=== PATIENT | female | born 1940 | race American Indian/Alaskan Native ===

== ENCOUNTER 2022-06-22 11:28 | Inpatient (IN) | payer MEDICARE ==
--- NOTE | 2022-06-22 11:42 | Emergency Department Report ---
ED General Adult HPI - General Chief complaint: Altered Mental Status Stated complaint: UTI/LETHRAGIC Time Seen by Provider: 06/22/22 11:40 Source: EMS Mode of arrival: Ambulatory Limitations: No Limitations - History of Present Illness Severity scale (0 -10): 3 - Related Data Allergies Allergy/AdvReac Type Severity Reaction Status Date / Time No Known Allergies Allergy Verified 06/22/22 11:41 ED Review of Systems ROS: Stated complaint: UTI/LETHRAGIC Other details as noted in HPI ED Physical Exam - General Limitations: No Limitations ED Course Vital Signs 06/22/22 11:30 Temperature 99.7 F H Pulse Rate 86 Respiratory 18 Rate Blood Pressure 180/92 [Left] O2 Sat by Pulse 99 Oximetry Critical care attestation.: If time is entered above; I have spent that time in minutes in the direct care of this critically ill patient, excluding procedure time. ED Disposition Condition: Stable
--- NOTE | 2022-06-22 12:08 | Event Note ---
Date: 06/22/22 Verbal report received from emergency medical services. EMS documentation not available at time of chart dictation Medical screening examination note: Patient is an 82-year-old female with a history of end-stage renal disease on hemodialysis, brought to the hospital by EMS with an EMS articulated complaint of weakness, malaise, fatigue, as per EMS "I think she has a urinary tract infection." EMS reports that they were informed by family that the patient has been altered for the past 2 days. The patient herself is awake, breathing spo ntaneously, moving 4 extremities, and has a low-grade temperature. Her abdomen is soft and benign. Place patient on vehicle monitor technician, obtain appropriate laboratory studies, EKG, urinalysis, rectal temperature, x-ray the chest, noncontrast CT scan of the brain. Detailed history and physical to be performed by oncoming provider Vital Signs 06/22/22 11:30 Temperature 99.7 F H Pulse Rate 86 Respiratory 18 Rate Blood Pressure 180/92 [Left] O2 Sat by Pulse 99 Oximetry
[2022-06-22 13:59] LABS: Albumin 3.8 g/dL (3.9-5); Calcium 9.8 mg/dL (8.4-10.2)
[2022-06-22 14:46] LABS: INR 1.03 (0.87-1.13)
[2022-06-22 14:47] LABS: Partial Thromboplastin Time 34.9 Sec. (24.2-36.6)
[2022-06-22 14:51] LABS: Hemoglobin 12.5 gm/dl (10.1-14.3); Red Blood Count 4.86 M/mm3 (3.65-5.03)
[2022-06-22 14:52] LABS: Basophils % (Auto) 2.7 % (0.0-1.8); Eosinophils % (Auto) 2.4 % (0.0-4.3); Lymphocytes % (Auto) 16.8 % (13.4-35.0); Mean Corpuscular HGB Conc 31 % (30-34); Mean Corpuscular Volume 84 fl (79-97); Monocytes % (Auto) 10.2 % (0.0-7.3); Platelet Count 295 K/mm3 (140-440); Red Cell Distribution Width 20.4 % (13.2-15.2)
--- NOTE | 2022-06-22 14:52 | XRay Report ---
CHEST 1 VIEW 06/22/2022 1:39 PM INDICATION / CLINICAL INFORMATION: Altered Mental Status. COMPARISON: None available. FINDINGS: SUPPORT DEVICES: Right IJ CVL tip projects over the superior cavoatrial junction. HEART / MEDIASTINUM: No significant abnormality. LUNGS / PLEURA: Diffuse bilateral interstitial prominence which appears to be chronic. No pneumothora x. ADDITIONAL FINDINGS: No significant additional findings. Signer Name: Timbo Hanley MD Signed: 06/22/2022 2:47 PM Workstation Name: [email or web address]
[2022-06-22 14:53] LABS: Basophils # (Auto) 0.2 K/mm3 (0.0-0.1); Eosinophils # (Auto) 0.2 K/mm3 (0.0-0.4); Lymphocytes # (Auto) 1.2 K/mm3 (1.2-5.4); Monocytes # (Auto) 0.8 K/mm3 (0.0-0.8)
--- NOTE | 2022-06-22 14:58 | Cat Scan Report ---
CT head/brain wo con INDICATION / CLINICAL INFORMATION: 82 years Female; Altered Mental Status. TECHNIQUE: Routine CT head without contrast. All CT scans at this location are performed using CT dos e reduction for ALARA by means of automated exposure control. Significant motion artifact. COMPARISON: None. FINDINGS: BRAIN / INTRACRANIAL CONTENTS: No acute hemorrhage, mass effect, midline shift, hydrocephalus, or acu te, large territorial infarct. Mild to moderate, diffuse cerebral and cerebellar atrophy. Moderate degree of hippocampal atrophy sug gested bilaterally. There are moderate areas of decreased attenuation in the white matter of the cerebral hemispheres. Th nhan are nonspecific findings and may be related to microangiopathy (hypertension, diabetes, atheroscl erosis), given the patient's age. It might be difficult to evaluate for small areas of ischemia witho ut diffusion imaging by MRI. CRANIOCERVICAL JUNCTION: No significant abnormality. ORBITS: No significant abnormality of visualized orbits. SINUSES / MASTOIDS: Visualized paranasal sinuses and mastoid air cells are essentially clear. ADDITIONAL FINDINGS: Bilateral temporomandibular joint disease noted. Atherosclerotic disease is seen in the anterior and posterior circulation. IMPRESSION: 1. No focal mass, hemorrhage, hydrocephalus, or acute, large territorial infarct appreciated on this limited study. Signer Name: Daniel Catherine MD, III Signed: 06/22/2022 2:53 PM Workstation Name: [email or web address]
--- NOTE | 2022-06-22 15:23 | Emergency Department Report ---
ED General Adult HPI - General Chief complaint: Altered Mental Status Stated complaint: UTI/LETHRAGIC PUI?: No Time Seen by Provider: 06/22/22 11:40 Source: EMS Mode of arrival: Ambulatory Limitations: No Limitations, Altered Mental Status - History of Present Illness Initial comments: 82yo F w/hx of ESRD on h/d bibems for altered mental status. EMS personnel is not present at this time. Per RN Gisselle, she has been unsuccessful in obtaining direct contact (via telephone) with the pt's family members to obtain further information concerning HPI. Pt unable to contribute further information secondary to her current mental status. Please note that at the start of this provider's shift time, the pt had been in the ER for several hours and underwent a medical screening examination by Dr. Joseph Johns. Pt's labs and diagnostic imaging were ordered by him and had resulted prior to the start of this provider's shift time. Severity scale (0 -10): 3 - Related Data Allergies Allergy/AdvReac Type Severity Reaction Status Date / Time No Known Allergies Allergy Verified 06/22/22 11:41 ED Review of Systems ROS: Stated complaint: UTI/LETHRAGIC Other details as noted in HPI Comment: Unobtainable due to pts medical conditions ED Past Medical Hx - Past Medical History Previous Medical History?: Yes Hx Renal Disease: Yes (on hemodialysis ) - Social History Smoking Status: Unknown if ever smoked ED Physical Exam - General Limitations: No Limitations, Altered Mental Status General appearance: lethargic, other (pt observed to have twitching movements; not responding to verbal stimuli ) - Head Head exam: Present: atraumatic, normocephalic, normal inspection - Eye Eye exam: Present: normal appearance, PERRL, EOMI. Absent: scleral icterus, conjunctival injection, nystagmus, periorbital swelling, periorbital tenderness, other Pupils: Present: normal accommodation. Absent: irregular, unequal, miosis, mydriatic - ENT ENT exam: Present: normal exam, mucous membranes dry - Neck Neck exam: Present: normal inspection, full ROM. Absent: tenderness, meningismus, lymphadenopathy, thyromegaly - Respiratory Respiratory exam: Present: normal lung sounds bilaterally, respiratory distress. Absent: wheezes, rales, rhonchi, stridor, chest wall tenderness, accessory muscle use, decreased breath sounds, prolonged expiratory - Cardiovascular Cardiovascular Exam: Present: regular rate, normal rhythm, normal heart sounds. Absent: bradycardia, tachycardia, systolic murmur, diastolic murmur, rubs, irizarry p, clicks, JVD, S3 - GI/Abdominal GI/Abdominal exam: Present: soft, diminished bowel sounds. Absent: distended, tenderness, guarding, rebound, rigid, normal bowel sounds, hyperactive bowel sounds, hypoactive bowel sounds, organomegaly, mass, bruit, pulsatile mass, hernia, other - External exam: Present: lacerations, ecchymosis, bleeding - Extremities Exam Extremities exam: Present: normal inspection, full ROM, normal capillary refill. Absent: tenderness, pedal edema, joint swelling, calf tenderness - Neurological Exam Neurological exam: Present: altered, reflexes normal (altered mental status ), other (pt nonverbal ) - Skin Skin exam: Present: warm, dry, intact, normal color. Absent: rash, cyanosis, diaphoretic, erythema, urticaria, vesicles, petechiae, pallor, abrasion, ecchymosis ED Course Vital Signs 06/22/22 06/22/22 06/22/22 11:30 15:01 16:00 Temperature 99.7 F H Pulse Rate 86 Pulse Rate [ Anterior Bilateral Throughout] Respiratory 18 Rate Respiratory Rate [Anterior Bilateral Throughout] Blood Pressure Blood Pressure 180/92 [Left] O2 Sat by Pulse 99 97 96 Oximetry O2 Sat by Pulse Oximetry [ Anterior Bilateral Throughout] 06/22/22 06/22/22 06/22/22 16:55 18:40 19:45 Temperature 97.8 F Pulse Rate 90 76 Pulse Rate [ 90 Anterior Bilateral Throughout] Respiratory 26 H Rate Respiratory 18 Rate [Anterior Bilateral Throughout] Blood Pressure 212/115 210/92 Blood Pressure [Left] O2 Sat by Pulse Oximetry O2 Sat by Pulse 100 Oximetry [ Anterior Bilateral Throughout] 06/22/22 06/22/22 06/22/22 19:50 19:59 20:00 Temperature Pulse Rate 68 72 Pulse Rate [ Anterior Bilateral Throughout] Respiratory 20 Rate Respiratory Rate [Anterior Bilateral Throughout] Blood Pressure 204/97 212/98 Blood Pressure [Left] O2 Sat by Pulse 98 Oximetry O2 Sat by Pulse Oximetry [ Anterior Bilateral Throughout] 06/22/22 06/22/22 06/22/22 20:15 20:30 20:45 Temperature Pulse Rate 67 68 88 Pulse Rate [ Anterior Bilateral Throughout] Respiratory Rate Respiratory Rate [Anterior Bilateral Throughout] Blood Pressure 196/101 175/95 199/90 Blood Pressure [Left] O2 Sat by Pulse Oximetry O2 Sat by Pulse Oximetry [ Anterior Bilateral Throughout] 06/22/22 06/22/22 06/22/22 21:00 21:15 21:30 Temperature Pulse Rate 79 82 81 Pulse Rate [ Anterior Bilateral Throughout] Respiratory Rate Respiratory Rate [Anterior Bilateral Throughout] Blood Pressure 187/98 199/97 206/89 Blood Pressure [Left] O2 Sat by Pulse Oximetry O2 Sat by Pulse Oximetry [ Anterior Bilateral Throughout] 06/22/22 06/22/22 06/22/22 21:45 22:00 22:15 Temperature Pulse Rate 79 82 98 H Pulse Rate [ Anterior Bilateral Throughout] Respiratory Rate Respiratory Rate [Anterior Bilateral Throughout] Blood Pressure 179/92 198/97 186/89 Blood Pressure [Left] O2 Sat by Pulse Oximetry O2 Sat by Pulse Oximetry [ Anterior Bilateral Throughout] 06/22/22 06/22/22 22:30 22:56 Temperature 98.0 F 98.0 F Pulse Rate 92 H 70 Pulse Rate [ Anterior Bilateral Throughout] Respiratory 20 22 Rate Respiratory Rate [Anterior Bilateral Throughout] Blood Pressure 192/88 Blood Pressure 136/90 [Left] O2 Sat by Pulse 100 Oximetry O2 Sat by Pulse 100 Oximetry [ Anterior Bilateral Throughout] - Reevaluation(s) Reevaluation #2: 06/22/22 16:30 call made to lab ; no answer - Consultations Consultation #1: 06/22/22 17:[address] Angeles, information systems operator rental coordinator. He will place the pt in for stat orders for hemodialysis. ED Medical Decision Making - Lab Data Result diagrams: 06/22/22 13:05 06/22/22 15:21 - EKG Data -: EKG Interpreted by Me EKG shows normal: sinus rhythm Rate: normal - EKG Data When compared to previous EKG there are: no significant change Interpretation: no acute changes 06/22/22 17:54 EKG interpreted by me: - Medical Decision Making 82-year-old female brought in by EMS at the request of her family secondary to altered mental status. Patient hypertensive here. Medical screening examination note reviewed as well as labs ordered by previously examining physician. Repeat potassium obtained to verify whether or not the patient has true hyperkalemia in the setting of having missed multiple dialysis sessions. Repeat potassium is 8.6 and was not hemolyzed. Patient was treated emergently with multiple medications as documented in her electronic health care record to reduce hyperkalemia. Case was discussed with Dr. Perez, who stated he will place the patient in for emergent orders to undergo hemodialysis. Case reviewed with Dr. Noel. He has accepted the patient for admission to the hospital service. Of note the patient's son's name is Konrad Bell and he can be reached at [phone] Critical Care Time: Yes Critical care time in (mins) excluding proc time.: 30 Critical care attestation.: If time is entered above; I have spent that time in minutes in the direct care of this critically ill patient, excluding procedure time. ED Disposition Clinical Impression: Hyperkalemia Disposition: ADMITTED INPATIENT Is pt being admited?: Yes Does the pt Need Aspirin: No Condition: Stable
[2022-06-22 16:22] LABS: Chol/HDL Ratio 2.65 %
[2022-06-22] MEDS ORDERED: CALCIUM GLUCONATE 1,000 MG in SODIUM CHLORIDE 0.9% 100 ML IV ONE (16:32)
[2022-06-22] MEDS ORDERED: INSULIN REGULAR, HUMAN 100 UNITS/1 ML IV ONE (16:32)
[2022-06-22] MEDS ORDERED: IPRATROPIUM/ALBUTEROL SULFATE 3 ML AMPUL.NEB IH ONE (16:32)
[2022-06-22] MEDS ORDERED: DEXTROSE 50% IN WATER (25GM) 50 ML SYRINGE IV ONE (16:32)
--- NOTE | 2022-06-22 17:35 | Event Note ---
Date: 06/22/22 Case discussed with ED physician. Orders placed for STAT dialysis.
[2022-06-22] MEDS ORDERED: ALBUTEROL 2.5 MG/3 ML NEBU IH ONE (17:45)
[2022-06-22] MEDS ORDERED: HYDROmorphone 0.5 MG/0.5 ML INJ IV PRN (17:53)
[2022-06-22] MEDS ORDERED: ONDANSETRON 4 MG/2 ML INJ IV PRN (17:53)
[2022-06-22] MEDS ORDERED: ALBUTEROL 2.5 MG/3 ML NEBU IH PRN (17:53)
[2022-06-22] MEDS ORDERED: ACETAMINOPHEN 325 MG TAB PO PRN (17:53)
[2022-06-22] MEDS ORDERED: oxyCODONE /ACETAMINOPHEN 5-325MG TAB PO PRN (17:53)
--- NOTE | 2022-06-22 17:53 | History and Physical Report ---
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 Patient is confused and lethargic with diminished cognition at the time of evaluation and is unable to provide history. Patient described by EMS staff, ED staff, as well as the patient's son was made available by telephone for interview. As per son the patient has experienced increased confusion and weakness over the past several weeks and is unable been unable to undergo dialysis. EMS was notified and upon arrival the patient was found to be in distress and subsequent transported to [facility] for further care and evaluation of the aforementioned symptoms. The patient was seen and evaluated emergency department. All lab and imaging studies reviewed. Patient found to have end-stage renal disease, hyperkalemia, fluid overload, metabolic encephalopathy, accelerated hypertension. Patient admitted to medical floor due to increased risk of worsening symptoms and for medical stabilization. Nephrology team consulted in ED. Patient has diminished cognition at time of evaluation but has a positive gag reflex and respiratory without difficulty. Patient family informed of patient overall poor prognosis and request aggressive therapy. Patient admitted to telemetry for medical stabilization due to increased risk of worsening symptoms. No reports of fever, chills, chest pain, palpitation or productive cough, skin rash or recent contact, no exposure to COVID-19. No prior admission for review. No medication listed at time of admission for reconciliation. Medical plan conducted in ED. Past History Past Medical History: ESRD Past Surgical History: Other (Dialysis access) Social history: single. denies: smoking, alcohol abuse, prescription drug abuse Family history: diabetes, hypertension Medications and Allergies Allergies Allergy/AdvReac Type Severity Reaction Status Date / Time No Known Allergies Allergy Verified 06/22/22 11:41 Review of Systems ROS unobtainable: due to mental status Exam - Constitutional Vitals: Temp Pulse Resp BP Pulse Ox 99.7 F H 90 18 212/115 97 06/22/22 11:30 06/22/22 16:55 06/22/22 11:30 06/22/22 16:55 06/22/22 15:01 General appearance: Present: mild distress - EENT Eyes: Present: PERRL ENT: hearing intact, clear oral mucosa, hearing decreased - Neck Neck: Present: supple, normal ROM - Respiratory Respiratory effort: labored Respiratory: bilateral: diminished, rhonchi - Cardiovascular Heart Sounds: Present: S1 & S2. Absent: rub, click - Extremities Extremities: pulses symmetrical, No edema Peripheral Pulses: within normal limits - Abdominal General gastrointestinal: Present: soft, non-tender, non-distended, normal bowel sounds Female genitourinary: Present: normal - Integumentary Integumentary: Present: clear, dry, clammy - Musculoskeletal Musculoskeletal: generalized weakness - Psychiatric Psychiatric: no intact judgment & insight, no memory intact - Neurologic Neurologic: CNII-XII intact, no focal deficits, moves all extremities, no gait normal HEART Score - HEART Score Troponin: Troponin T 0.057 ng/mL (0.00-0.029) H 06/22/22 13:05 Results - Labs CBC & Chem 7: 06/22/22 13:05 06/22/22 15:21 Labs: Abnormal lab results 06/22/22 06/22/22 06/22/22 Range/Units 13:05 13:05 13:05 MCH 26 L (28-32) pg RDW 20.4 H (13.2-15.2) % [place] % (Auto) 10.2 H (0.0-7.3) % Baso % (Auto) 2.7 H (0.0-1.8) % Baso # (Auto) 0.2 H (0.0-0.1) K/mm3 Potassium 8.1 H* (3.6-5.0) mmol/L BUN 119 H (7-17) mg/dL Creatinine 14.7 H (0.6-1.2) mg/dL Lactic Acid 0.50 L (0.7-2.0) mmol/L ALT 6 L (7-56) units/L Alkaline Phosphatase 23 L (35-129) units/L Troponin T (0.00-0.029) ng/mL Albumin 3.8 L (3.9-5) g/dL Salicylates (2.8-20.0) mg/dL Acetaminophen (10.0-30.0) ug/mL 06/22/22 06/22/22 06/22/22 Range/Units 13:05 13:05 13:05 MCH (28-32) pg RDW (13.2-15.2) % [place] % (Auto) (0.0-7.3) % Baso % (Auto) (0.0-1.8) % Baso # (Auto) (0.0-0.1) K/mm3 Potassium (3.6-5.0) mmol/L BUN (7-17) mg/dL Creatinine (0.6-1.2) mg/dL Lactic Acid (0.7-2.0) mmol/L ALT (7-56) units/L Alkaline Phosphatase (35-129) units/L Troponin T 0.057 H (0.00-0.029) ng/mL Albumin (3.9-5) g/dL Salicylates < 0.3 L (2.8-20.0) mg/dL Acetaminophen 5.0 L (10.0-30.0) ug/mL 06/22/22 Range/Units 15:21 MCH (28-32) pg RDW (13.2-15.2) % [place] % (Auto) (0.0-7.3) % Baso % (Auto) (0.0-1.8) % Baso # (Auto) (0.0-0.1) K/mm3 Potassium 8.6 H* (3.6-5.0) mmol/L BUN (7-17) mg/dL Creatinine (0.6-1.2) mg/dL Lactic Acid (0.7-2.0) mmol/L ALT (7-56) units/L Alkaline Phosphatase (35-129) units/L Troponin T (0.00-0.029) ng/mL Albumin (3.9-5) g/dL Salicylates (2.8-20.0) mg/dL Acetaminophen (10.0-30.0) ug/mL Assessment and Plan - Patient Problems (1) Metabolic encephalopathy Current Visit: Yes Status: Acute Plan to address problem: CT head, neuro check, supportive care, urgent dialysis. BMP, monitor fluid balance, supportive care. (2) End stage renal disease Current Visit: Yes Status: Acute Plan to address problem: Urgent dialysis as per renal team, strict I's/O, monitor fluid balance, avoid nephrotoxic agents. (3) Hyperkalemia Current Visit: No Status: Acute Plan to address problem: Kayexalate, calcium gluconate, supportive care, stat dialysis, repeat BMP, no EKG changes at this time. (4) Accelerated hypertension Current Visit: Yes Status: Acute Plan to address problem: Monitor blood pressure every shift, continue medical management, IV hydralazine every 6 hours as needed for systolic blood pressure greater than or equal to 155 mmHg. (5) DVT prophylaxis Current Visit: Yes Status: Acute Plan to address problem: SCD to bilateral lower extremities while in bed (6) Advance care planning Current Visit: Yes Status: Acute Plan to address problem: Disease education data, care plan discussed, diagnoses discussed, prognosis discussed, patient is full code. Patient family knowledges understanding agree with care plan, +30 minutes. (7) Preventative health care Current Visit: Yes Status: Acute Plan to address problem: Patient family counseled regarding prognosis, home safety, outpatient follow-up with all age and risk factor appropriate screening tests as per primary care physician. +30 minutes.
[2022-06-22 18:37] LABS: Hepatitis B Surface Antigen Non-Reactive (Negative); Hepatitis C Virus Antibody Non-Reactive (NonReactive)
[2022-06-23] MEDS ORDERED: DEXTROSE 50% IN WATER (25GM) 50 ML SYRINGE IV ONE (02:23)
[2022-06-23] MEDS: hydrALAZINE 20 MG/1 ML INJ IV PRN ×2 (02:33→16:09)
[2022-06-23] MEDS ORDERED: SODIUM CHLORIDE 0.9% 100 ML IV PRN (10:00)
--- NOTE | 2022-06-23 12:51 | Progress Note ---
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 Patient described by EMS staff, ED staff, as well as the patient's son was made available by telephone for interview. As per son the patient has experienced increased confusion and weakness over the past several weeks and has been unable to undergo dialysis. The patient was seen and evaluated emergency department. All lab and imaging studies reviewed. Patient found to have end-stage renal disease, hyperkalemia, fluid overload, metabolic encephalopathy, accelerated hypertension. Acute metabolic encephalopathy ESRD Hyperkalemia Accelerated hypertension Hospital course: 06/23/2022. On admission, patient was noted to have a potassium of 8.6. The patient underwent stat hemodialysis yesterday with only slight improvement in the potassium to 7.3 today. Patient is to undergo hemodialysis again today. Patient remains confused. We will check ammonia levels. Check MRI brain Hospitalist Physical - Constitutional Vitals: Temp Pulse Resp BP Pulse Ox 97.7 F 82 18 132/73 98 06/23/22 10:00 06/23/22 11:15 06/23/22 10:00 06/23/22 11:15 06/23/22 10:00 General appearance: Present: mild distress HEART Score - HEART Score Troponin: Troponin T 0.057 ng/mL (0.00-0.029) H 06/22/22 13:05 Results - Labs CBC & Chem 7: 06/22/22 13:05 06/23/22 08:09 Labs: Laboratory Last Values WBC 7.4 K/mm3 (4.5-11.0) 06/22/22 13:05 RBC 4.86 M/mm3 (3.65-5.03) 06/22/22 13:05 Hgb 12.5 gm/dl (10.1-14.3) 06/22/22 13:05 Hct 41.0 % (30.3-42.9) 06/22/22 13:05 MCV 84 fl (79-97) 06/22/22 13:05 MCH 26 pg (28-32) L 06/22/22 13:05 MCHC 31 % (30-34) 06/22/22 13:05 RDW 20.4 % (13.2-15.2) H 06/22/22 13:05 Plt Count 295 K/mm3 (140-440) 06/22/22 13:05 Lymph % (Auto) 16.8 % (13.4-35.0) 06/22/22 13:05 [place] % (Auto) 10.2 % (0.0-7.3) H 06/22/22 13:05 Eos % (Auto) 2.4 % (0.0-4.3) 06/22/22 13:05 Baso % (Auto) 2.7 % (0.0-1.8) H 06/22/22 13:05 Lymph # (Auto) 1.2 K/mm3 (1.2-5.4) 06/22/22 13:05 [place] # (Auto) 0.8 K/mm3 (0.0-0.8) 06/22/22 13:05 Eos # (Auto) 0.2 K/mm3 (0.0-0.4) 06/22/22 13:05 Baso # (Auto) 0.2 K/mm3 (0.0-0.1) H 06/22/22 13:05 Add Manual Diff Complete 06/22/22 13:05 Seg Neutrophils % 67.9 % (40.0-70.0) 06/22/22 13:05 Seg Neutrophils # 5.0 K/mm3 (1.8-7.7) 06/22/22 13:05 PT 14.7 Sec. (12.2-14.9) 06/22/22 13:05 INR 1.03 (0.87-1.13) 06/22/22 13:05 APTT 34.9 Sec. (24.2-36.6) 06/22/22 13:05 Sodium 141 mmol/L (137-145) 06/23/22 08:09 Potassium 7.3 mmol/L (3.6-5.0) H* 06/23/22 08:09 Chloride 97.9 mmol/L (98-107) L 06/23/22 08:09 Carbon Dioxide 25 mmol/L (22-30) 06/23/22 08:09 Anion Gap 25 mmol/L 06/23/22 08:09 BUN 76 mg/dL (7-17) H 06/23/22 08:09 Creatinine 11.4 mg/dL (0.6-1.2) H 06/23/22 08:09 Estimated GFR 4 ml/min 06/23/22 08:09 BUN/Creatinine Ratio 7 % 06/23/22 08:09 Glucose 86 mg/dL (65-100) 06/23/22 08:09 POC Glucose 98 mg/dL (70-105) 06/23/22 05:05 Lactic Acid 0.50 mmol/L (0.7-2.0) L 06/22/22 13:05 Calcium 10.0 mg/dL (8.4-10.2) 06/23/22 08:09 Total Bilirubin 0.20 mg/dL (0.1-1.2) 06/22/22 13:05 AST 8 units/L (5-40) 06/22/22 13:05 ALT 6 units/L (7-56) L 06/22/22 13:05 Alkaline Phosphatase 23 units/L (35-129) L 06/22/22 13:05 Ammonia 28.0 umol/L (25-60) 06/22/22 13:05 Total Creatine Kinase 51 units/L (30-135) 06/22/22 13:05 Troponin T 0.057 ng/mL (0.00-0.029) H 06/22/22 13:05 Total Protein 7.4 g/dL (6.3-8.2) 06/22/22 13:05 Albumin 3.8 g/dL (3.9-5) L 06/22/22 13:05 Albumin/Globulin Ratio 1.1 % 06/22/22 13:05 Triglycerides 57 mg/dL (2-149) 06/22/22 13:05 Cholesterol 125 mg/dL (50-199) 06/22/22 13:05 LDL Cholesterol Direct 63 mg/dL (50-130) 06/22/22 13:05 HDL Cholesterol 47 mg/dL (40-59) 06/22/22 13:05 Cholesterol/HDL Ratio 2.65 % 06/22/22 13:05 TSH 4.020 mlU/mL (0.270-4.200) 06/22/22 15:29 Salicylates < 0.3 mg/dL (2.8-20.0) L 06/22/22 13:05 Acetaminophen 5.0 ug/mL (10.0-30.0) L 06/22/22 13:05 Plasma/Serum Alcohol < 0.01 % (0-0.07) 06/22/22 13:05 Hepatitis A IgM Ab Non-reactive (NonReactive) 06/22/22 13:05 Hep Bs Antigen Non-reactive (Negative) 06/22/22 13:05 Hep B Core IgM Ab Non-reactive (NonReactive) 06/22/22 13:05 Hepatitis C Antibody Non-reactive (NonReactive) 06/22/22 13:05 Blood Type B POSITIVE 06/22/22 13:05 Antibody Screen Negative 06/22/22 13:05 Microbiology: Microbiology 06/22/22 13:05 Peripheral/Venous Blood Culture - Preliminary Culture in Progress 06/22/22 13:05 Peripheral/Venous Blood Culture - Preliminary Culture in Progress Active Medications - Current Medications Current Medications: Generic Name Dose Route Start Last Admin Trade Name Freq PRN Reason Stop Dose Admin Acetaminophen 650 mg 06/22/22 17:53 Acetaminophen 325 Mg Tab PO Q4H PRN Pain MILD(1-3)/Fever >100.5/CHAN Albuterol 2.5 mg 06/22/22 17:53 Albuterol 2.5 Mg/3 Ml Nebu IH Q4HRT PRN Shortness Of Breath Hydralazine HCl 10 mg 06/23/22 02:16 06/23/22 02:33 Hydralazine 20 Mg/1 Ml Inj IV 10 mg Q4HR PRN Administration Hypertension Hydromorphone HCl 0.5 mg 06/22/22 17:53 Hydromorphone 0.5 Mg/0.5 Ml Inj IV Q23H PRN Pain , Severe (7-10) Sodium Chloride 100 mls @ 999 mls/hr 06/23/22 10:00 Nacl 0.9% IV WALTER PRN Hypotension Ondansetron HCl 4 mg 06/22/22 17:53 Ondansetron 4 Mg/2 Ml Inj IV Q8H PRN Nausea And Vomiting Oxycodone/Acetaminophen 1 tab 06/22/22 17:53 Oxycodone /Acetaminophen 5-325mg Tab PO Q16H PRN Pain, Moderate (4-6) Sodium Chloride 10 ml 06/22/22 22:00 06/23/22 02:34 Sodium Chloride 0.9% 10 Ml Flush Syringe IV 10 ml BID ANGELICA Administration Sodium Chloride 10 ml 06/22/22 17:53 Sodium Chloride 0.9% 10 Ml Flush Syringe IV PRN PRN LINE FLUSH
--- NOTE | 2022-06-23 12:57 | Consultation ---
History of Present Illness - Reason for Consult end stage renal disease, hyperkalemia - History of Present Illness frail 82-year-old -[place] female with underlying history of end-stage renal disease secondary to hypertension along with a history of dementia, who typically dialyzes on a Wednesday//Wednesday hemodialysis schedule at [facility], presented to the emergency department brought in by family secondary to worsening lethargy and weakness. Did discuss case with patient's home dialysis clinic who mentioned to me that she had been missing multiple dialysis treatments. Apparently family had contributed much of her weakness and fatigue to the dialysis treatments and as such had not been bringing her for her scheduled dialysis treatments. It seems that on average she misses at least 2 treatments every week. Patient comes in now very lethargic, weak, fatigued, and really unable to provide any other history herself. History was obtained through review of records and discussion of case with primary team. Nephrology was consulted for urgent dialysis needs. She was urgently dialyzed yesterday and labs repeated this morning also indicate need for a second dialysis treatment which we have ordered at this time. Past History Past Medical History: ESRD, hypertension, hyperlipidemia Past Surgical History: Other (Dialysis access) Social history: single. denies: smoking, alcohol abuse, prescription drug abuse Family history: diabetes, hypertension Medications and Allergies Allergies Allergy/AdvReac Type Severity Reaction Status Date / Time No Known Allergies Allergy Verified 06/22/22 11:41 Active Meds: Active Medications Acetaminophen (Acetaminophen 325 Mg Tab) 650 mg PO Q4H PRN PRN Reason: Pain MILD(1-3)/Fever >100.5/CHAN Albuterol (Albuterol 2.5 Mg/3 Ml Nebu) 2.5 mg IH Q4HRT PRN PRN Reason: Shortness Of Breath Hydralazine HCl (Hydralazine 20 Mg/1 Ml Inj) 10 mg IV Q4HR PRN PRN Reason: Hypertension Last Admin: 06/23/22 02:33 Dose: 10 mg Hydromorphone HCl (Hydromorphone 0.5 Mg/0.5 Ml Inj) 0.5 mg IV Q23H PRN PRN Reason: Pain , Severe (7-10) Sodium Chloride (Nacl 0.9%) 100 mls @ 999 mls/hr IV WALTER PRN PRN Reason: Hypotension Ondansetron HCl (Ondansetron 4 Mg/2 Ml Inj) 4 mg IV Q8H PRN PRN Reason: Nausea And Vomiting Oxycodone/Acetaminophen (Oxycodone /Acetaminophen 5-325mg Tab) 1 tab PO Q16H PRN PRN Reason: Pain, Moderate (4-6) Sodium Chloride (Sodium Chloride 0.9% 10 Ml Flush Syringe) 10 ml IV BID ANGELICA Last Admin: 06/23/22 02:34 Dose: 10 ml Sodium Chloride (Sodium Chloride 0.9% 10 Ml Flush Syringe) 10 ml IV PRN PRN PRN Reason: LINE FLUSH Review of Systems ROS unobtainable: due to mental status Exam - Vital Signs Vital signs: Vital Signs Temp Pulse Resp BP Pulse Ox 99.7 F H 86 18 180/92 99 06/22/22 11:30 06/22/22 11:30 06/22/22 11:30 06/22/22 11:30 06/22/22 11:30 - General Appearance General appearance: cachectic, chronically ill, frail EENT: ATNC Neck: Present: neck supple, trachea midline Respiratory: Decreased Breath Sounds Heart: regular Gastrointestinal: Present: normal Integumentary: no rash Neurologic: disoriented Musculoskeletal: Present: deferred Results - Lab Results 06/22/22 13:05 06/23/22 08:09 Most recent lab results Calcium 10.0 mg/dL (8.4-10.2) 06/23/22 08:09 Assessment and Plan - Patient Problems (1) Hyperkalemia Current Visit: Yes Status: Acute Plan to address problem: we will correct with hemodialysis. Likely a consequence of noncompliance with her dialysis treatments. (2) Accelerated hypertension Current Visit: Yes Status: Acute Plan to address problem: likely as a consequence of noncompliance with hemodialysis treatments. Will try to maximally optimize ultrafiltration during dialysis treatments. Will monitor closely on current regimen. (3) Metabolic encephalopathy Current Visit: Yes Status: Chronic Plan to address problem: there may be an element of worsening altered mentation secondary to poor compliance with dialysis. She does however have a documented history of dementia and I did confirm this with her home dialysis clinic. (4) End stage renal disease Current Visit: Yes Status: Chronic Plan to address problem: we will continue on inpatient Wednesday hemodialysis schedule and will assess daily for extra needs of dialysis and/or sequential ultrafiltration treatment.
--- NOTE | 2022-06-23 13:17 | Electrocardiograph Report ---
[facility] Test Date: 2022-06-22 Test Time: 15:47:22 Pat Name: CAROLINE DONOVAN Department: Room: A478 1 Gender: F Mechanical Facilities Technician: TEJAS : 1940 Requested By: YAKELIN VILLATORO Order Number: [id number] Reading MD: Shae Dominguez Measurements Intervals [place] Rate: 71 P: 65 ND: 201 QRS: -41 QRSD: 101 T: 54 QT: 409 QTc: 444 Interpretive Statements Sinus rhythm Probable left atrial enlargement Left anterior fascicular block Left ventricular hypertrophy No previous ECG available for comparison Electronically Signed On 06-23-2022 13:16:58 EDT by Shae Dominguez
[2022-06-24] MEDS ORDERED: SODIUM POLYSTYRENE 15 GM/60 ML ORAL LIQD PO ONE (01:09)
[2022-06-24 05:28] LABS: Mean Corpuscular HGB Conc 30 % (30-34); Mean Corpuscular Volume 86 fl (79-97); Platelet Count 280 K/mm3 (140-440); Red Blood Count 4.82 M/mm3 (3.65-5.03)
[2022-06-24 05:39] LABS: Hematocrit 41.4 % (30.3-42.9); Hemoglobin 12.3 gm/dl (10.1-14.3); Red Cell Distribution Width 20.2 % (13.2-15.2)
[2022-06-24 05:44] LABS: Calcium 9.8 mg/dL (8.4-10.2)
[2022-06-24 06:32] LABS: Anisocytosis 1+; Eosinophils % (Manual) 0 % (0.0-4.3); Hypochromasia 1+; Platelet Estimate Consistent w Auto; Total Cells Counted 100
[2022-06-24] MEDS ORDERED: SODIUM CHLORIDE 0.9% 100 ML IV PRN (10:00)
--- NOTE | 2022-06-24 12:40 | Progress Note ---
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 Patient described by EMS staff, ED staff, as well as the patient's son was made available by telephone for interview. As per son the patient has experienced increased confusion and weakness over the past several weeks and has been unable to undergo dialysis. The patient was seen and evaluated emergency department. All lab and imaging studies reviewed. Patient found to have end-stage renal disease, hyperkalemia, fluid overload, metabolic encephalopathy, accelerated hypertension. Acute metabolic encephalopathy ESRD Hyperkalemia Accelerated hypertension Hospital course: 06/23/2022. On admission, patient was noted to have a potassium of 8.6. The patient underwent stat hemodialysis yesterday with only slight improvement in the potassium to 7.3 today. Patient is to undergo hemodialysis again today. Patient remains confused. We will check ammonia levels. Check MRI brain 06/24/2022. Ammonia level within normal limits. Await MRI brain. Consider neurology consultation. Patient undergoing hemodialysis currently. We will assess mental status after hemodialysis treatment. I suspect etiology is secondary to metabolic encephalopathy. Hypokalemia should also resolve with hemodialysis. Continue antihypertensive medications. Hospitalist Physical - Constitutional Vitals: Temp Pulse Resp BP Pulse Ox 98.2 F 94 H 20 160/90 98 06/24/22 08:12 06/24/22 08:12 06/24/22 05:17 06/24/22 08:12 06/24/22 10:00 General appearance: Present: mild distress HEART Score - HEART Score Troponin: Troponin T 0.057 ng/mL (0.00-0.029) H 06/22/22 13:05 Results - Labs CBC & Chem 7: 06/24/22 04:39 06/24/22 04:39 Labs: Laboratory Last Values WBC 7.6 K/mm3 (4.5-11.0) 06/24/22 04:39 RBC 4.82 M/mm3 (3.65-5.03) 06/24/22 04:39 Hgb 12.3 gm/dl (10.1-14.3) 06/24/22 04:39 Hct 41.4 % (30.3-42.9) 06/24/22 04:39 MCV 86 fl (79-97) 06/24/22 04:39 MCH 26 pg (28-32) L 06/24/22 04:39 MCHC 30 % (30-34) 06/24/22 04:39 RDW 20.2 % (13.2-15.2) H 06/24/22 04:39 Plt Count 280 K/mm3 (140-440) 06/24/22 04:39 Lymph % (Auto) 16.8 % (13.4-35.0) 06/22/22 13:05 [place] % (Auto) Investment Banking Analyst 06/24/22 04:39 Eos % (Auto) 2.4 % (0.0-4.3) 06/22/22 13:05 Baso % (Auto) 2.7 % (0.0-1.8) H 06/22/22 13:05 Lymph # (Auto) 1.2 K/mm3 (1.2-5.4) 06/22/22 13:05 Dyer # (Auto) 0.8 K/mm3 (0.0-0.8) 06/22/22 13:05 Eos # (Auto) 0.2 K/mm3 (0.0-0.4) 06/22/22 13:05 Baso # (Auto) 0.2 K/mm3 (0.0-0.1) H 06/22/22 13:05 Add Manual Diff Complete 06/24/22 04:39 Total Counted 100 06/24/22 04:39 Seg Neutrophils % 67.9 % (40.0-70.0) 06/22/22 13:05 Seg Neuts % (Manual) 72.0 % (40.0-70.0) H 06/24/22 04:39 Band Neutrophils % 0 % 06/24/22 04:39 Lymphocytes % (Manual) 14.0 % (13.4-35.0) 06/24/22 04:39 Reactive Lymphs % (Man) 0 % 06/24/22 04:39 Monocytes % (Manual) 13.0 % (0.0-7.3) H 06/24/22 04:39 Eosinophils % (Manual) 0 % (0.0-4.3) 06/24/22 04:39 Basophils % (Manual) 1.0 % (0.0-1.8) 06/24/22 04:39 Metamyelocytes % 0 % 06/24/22 04:39 Myelocytes % 0 % 06/24/22 04:39 Promyelocytes % 0 % 06/24/22 04:39 Blast Cells % 0 % 06/24/22 04:39 Nucleated RBC % Not Reportable 06/24/22 04:39 Seg Neutrophils # 5.0 K/mm3 (1.8-7.7) 06/22/22 13:05 Seg Neutrophils # Man 5.5 K/mm3 (1.8-7.7) 06/24/22 04:39 Band Neutrophils # 0.0 K/mm3 06/24/22 04:39 Lymphocytes # (Manual) 1.1 K/mm3 (1.2-5.4) L 06/24/22 04:39 Abs React Lymphs (Man) 0.0 K/mm3 06/24/22 04:39 Monocytes # (Manual) 1.0 K/mm3 (0.0-0.8) H 06/24/22 04:39 Eosinophils # (Manual) 0.0 K/mm3 (0.0-0.4) 06/24/22 04:39 Basophils # (Manual) 0.1 K/mm3 (0.0-0.1) 06/24/22 04:39 Metamyelocytes # 0.0 K/mm3 06/24/22 04:39 Myelocytes # 0.0 K/mm3 06/24/22 04:39 Promyelocytes # 0.0 K/mm3 06/24/22 04:39 Blast Cells # 0.0 K/mm3 06/24/22 04:39 WBC Morphology Not Reportable 06/24/22 04:39 Hypersegmented Neuts Not Reportable 06/24/22 04:39 Hyposegmented Neuts Not Reportable 06/24/22 04:39 Hypogranular Neuts Not Reportable 06/24/22 04:39 Smudge Cells Not Reportable 06/24/22 04:39 Toxic Granulation Not Reportable 06/24/22 04:39 Toxic Vacuolation Not Reportable 06/24/22 04:39 Dohle Bodies Not Reportable 06/24/22 04:39 Pelger-Huet Anomaly Not Reportable 06/24/22 04:39 Agusto Rods Not Reportable 06/24/22 04:39 Platelet Estimate Consistent w auto 06/24/22 04:39 Clumped Platelets Not Reportable 06/24/22 04:39 Plt Clumps, EDTA Not Reportable 06/24/22 04:39 Large Platelets Not Reportable 06/24/22 04:39 Giant Platelets Not Reportable 06/24/22 04:39 Platelet Satelliting Not Reportable 06/24/22 04:39 Plt Morphology Comment Not Reportable 06/24/22 04:39 RBC Morphology Not Reportable 06/24/22 04:39 Dimorphic RBCs Not Reportable 06/24/22 04:39 Polychromasia Not Reportable 06/24/22 04:39 Hypochromasia 1+ 06/24/22 04:39 Poikilocytosis Not Reportable 06/24/22 04:39 Anisocytosis 1+ 06/24/22 04:39 Microcytosis Not Reportable 06/24/22 04:39 Macrocytosis Not Reportable 06/24/22 04:39 Spherocytes Not Reportable 06/24/22 04:39 Pappenheimer Bodies Not Reportable 06/24/22 04:39 Sickle Cells Not Reportable 06/24/22 04:39 Target Cells Not Reportable 06/24/22 04:39 Tear Drop Cells Not Reportable 06/24/22 04:39 Ovalocytes Not Reportable 06/24/22 04:39 Helmet Cells Not Reportable 06/24/22 04:39 [place] Bodies Not Reportable 06/24/22 04:39 [place] Rings Not Reportable 06/24/22 04:39 Lili Cells Not Reportable 06/24/22 04:39 Bite Cells Not Reportable 06/24/22 04:39 Crenated Cell Not Reportable 06/24/22 04:39 Elliptocytes Not Reportable 06/24/22 04:39 Acanthocytes (Spur) Not Reportable 06/24/22 04:39 Rouleaux Not Reportable 06/24/22 04:39 Hemoglobin C Crystals Not Reportable 06/24/22 04:39 Schistocytes Not Reportable 06/24/22 04:39 Malaria parasites Not Reportable 06/24/22 04:39 Hayes Bodies Not Reportable 06/24/22 04:39 Hem Pathologist Commnt No 06/24/22 04:39 PT 14.7 Sec. (12.2-14.9) 06/22/22 13:05 INR 1.03 (0.87-1.13) 06/22/22 13:05 APTT 34.9 Sec. (24.2-36.6) 06/22/22 13:05 Sodium 140 mmol/L (137-145) 06/24/22 04:39 Potassium 6.1 mmol/L (3.6-5.0) H* 06/24/22 04:39 Chloride 96.2 mmol/L (98-107) L 06/24/22 04:39 Carbon Dioxide 25 mmol/L (22-30) 06/24/22 04:39 Anion Gap 25 mmol/L 06/24/22 04:39 BUN 40 mg/dL (7-17) H 06/24/22 04:39 Creatinine 6.6 mg/dL (0.6-1.2) H 06/24/22 04:39 Estimated GFR 7 ml/min 06/24/22 04:39 BUN/Creatinine Ratio 6 % 06/24/22 04:39 Glucose 81 mg/dL (65-100) 06/24/22 04:39 POC Glucose 92 mg/dL (70-105) 06/23/22 21:25 Lactic Acid 0.50 mmol/L (0.7-2.0) L 06/22/22 13:05 Calcium 9.8 mg/dL (8.4-10.2) 06/24/22 04:39 Total Bilirubin 0.20 mg/dL (0.1-1.2) 06/22/22 13:05 AST 8 units/L (5-40) 06/22/22 13:05 ALT 6 units/L (7-56) L 06/22/22 13:05 Alkaline Phosphatase 23 units/L (35-129) L 06/22/22 13:05 Ammonia 23.0 umol/L (25-60) L 06/23/22 17:19 Total Creatine Kinase 51 units/L (30-135) 06/22/22 13:05 Troponin T 0.057 ng/mL (0.00-0.029) H 06/22/22 13:05 Total Protein 7.4 g/dL (6.3-8.2) 06/22/22 13:05 Albumin 3.8 g/dL (3.9-5) L 06/22/22 13:05 Albumin/Globulin Ratio 1.1 % 06/22/22 13:05 Triglycerides 57 mg/dL (2-149) 06/22/22 13:05 Cholesterol 125 mg/dL (50-199) 06/22/22 13:05 LDL Cholesterol Direct 63 mg/dL (50-130) 06/22/22 13:05 HDL Cholesterol 47 mg/dL (40-59) 06/22/22 13:05 Cholesterol/HDL Ratio 2.65 % 06/22/22 13:05 TSH 4.020 mlU/mL (0.270-4.200) 06/22/22 15:29 Salicylates < 0.3 mg/dL (2.8-20.0) L 06/22/22 13:05 Acetaminophen 5.0 ug/mL (10.0-30.0) L 06/22/22 13:05 Plasma/Serum Alcohol < 0.01 % (0-0.07) 06/22/22 13:05 Hepatitis A IgM Ab Non-reactive (NonReactive) 06/22/22 13:05 Hep Bs Antigen Non-reactive (Negative) 06/22/22 13:05 Hep B Core IgM Ab Non-reactive (NonReactive) 06/22/22 13:05 Hepatitis C Antibody Non-reactive (NonReactive) 06/22/22 13:05 Blood Type B POSITIVE 06/22/22 13:05 Antibody Screen Negative 06/22/22 13:05 Microbiology: Microbiology 06/22/22 13:05 Peripheral/Venous Blood Culture - Preliminary NO GROWTH AFTER 24 HOURS 06/22/22 13:05 Peripheral/Venous Blood Culture - Preliminary NO GROWTH AFTER 24 HOURS Perry/IV: Voiding Method Diaper Active Medications - Current Medications Current Medications: Generic Name Dose Route Start Last Admin Trade Name Freq PRN Reason Stop Dose Admin Acetaminophen 650 mg 06/22/22 17:53 Acetaminophen 325 Mg Tab PO Q4H PRN Pain MILD(1-3)/Fever >100.5/CHAN Albuterol 2.5 mg 06/22/22 17:53 Albuterol 2.5 Mg/3 Ml Nebu IH Q4HRT PRN Shortness Of Breath Hydralazine HCl 10 mg 06/23/22 02:16 06/23/22 16:09 Hydralazine 20 Mg/1 Ml Inj IV 10 mg Q4HR PRN Administration Hypertension Hydromorphone HCl 0.5 mg 06/22/22 17:53 Hydromorphone 0.5 Mg/0.5 Ml Inj IV Q23H PRN Pain , Severe (7-10) Sodium Chloride 100 mls @ 999 mls/hr 06/24/22 10:00 Nacl 0.9% IV WALTER PRN Hypotension Ondansetron HCl 4 mg 06/22/22 17:53 Ondansetron 4 Mg/2 Ml Inj IV Q8H PRN Nausea And Vomiting Oxycodone/Acetaminophen 1 tab 06/22/22 17:53 Oxycodone /Acetaminophen 5-325mg Tab PO Q16H PRN Pain, Moderate (4-6) Sodium Chloride 10 ml 06/22/22 22:00 06/24/22 09:41 Sodium Chloride 0.9% 10 Ml Flush Syringe IV 10 ml BID ANGELICA Administration Sodium Chloride 10 ml 06/22/22 17:53 Sodium Chloride 0.9% 10 Ml Flush Syringe IV PRN PRN LINE FLUSH
--- NOTE | 2022-06-24 16:15 | Progress Note ---
Assessment and Plan - Patient Problems (1) Hyperkalemia Current Visit: Yes Status: Acute Plan to address problem: we will correct with hemodialysis. Likely a consequence of noncompliance with her dialysis treatments. (2) Accelerated hypertension Current Visit: Yes Status: Acute Plan to address problem: likely as a consequence of noncompliance with hemodialysis treatments. Will try to maximally optimize ultrafiltration during dialysis treatments. Will monitor closely on current regimen. (3) Metabolic encephalopathy Current Visit: Yes Status: Chronic Plan to address problem: there may be an element of worsening altered mentation secondary to poor comp liance with dialysis. She does however have a documented history of dementia and I did confirm this with her home dialysis clinic. (4) End stage renal disease Current Visit: Yes Status: Chronic Plan to address problem: we will continue on inpatient Wednesday hemodialysis schedule and will assess daily for extra needs of dialysis and/or sequential ultrafiltration treatment. She has required extra HD treatments secondary to persistent hyperkalemia. We will assess daily. Subjective Date of service: 06/24/22 Interval history: Seen at the dialysis unit, tolerated treatment well per staff. Objective - Vital Signs Vital signs: Vital Signs - 12hr 06/24/22 06/24/22 06/24/22 05:17 08:12 10:00 Temperature 99.6 F 98.2 F Pulse Rate 91 H 94 H Respiratory 20 Rate Blood Pressure 152/71 160/90 O2 Sat by Pulse 100 96 98 Oximetry O2 Sat by Pulse Oximetry [ Anterior Bilateral Throughout] 06/24/22 06/24/22 06/24/22 10:35 10:45 10:50 Temperature Pulse Rate 80 78 Respiratory Rate Blood Pressure 182/83 205/92 O2 Sat by Pulse Oximetry O2 Sat by Pulse 99 Oximetry [ Anterior Bilateral Throughout] 06/24/22 06/24/22 06/24/22 11:00 11:15 11:30 Temperature Pulse Rate 89 99 H 99 H Respiratory Rate Blood Pressure 157/80 187/92 141/71 O2 Sat by Pulse Oximetry O2 Sat by Pulse Oximetry [ Anterior Bilateral Throughout] 06/24/22 06/24/22 06/24/22 11:45 12:00 12:15 Temperature Pulse Rate 99 H 87 83 Respiratory Rate Blood Pressure 146/71 163/82 165/77 O2 Sat by Pulse Oximetry O2 Sat by Pulse Oximetry [ Anterior Bilateral Throughout] 06/24/22 06/24/22 06/24/22 12:30 12:45 13:00 Temperature Pulse Rate 77 75 71 Respiratory Rate Blood Pressure 131/68 120/77 132/78 O2 Sat by Pulse Oximetry O2 Sat by Pulse Oximetry [ Anterior Bilateral Throughout] 06/24/22 06/24/22 06/24/22 13:15 13:30 13:45 Temperature Pulse Rate 79 80 77 Respiratory Rate Blood Pressure 178/93 162/85 183/91 O2 Sat by Pulse Oximetry O2 Sat by Pulse Oximetry [ Anterior Bilateral Throughout] 06/24/22 06/24/22 14:00 14:15 Temperature 98.8 F Pulse Rate 72 80 Respiratory 20 Rate Blood Pressure 187/93 150/76 O2 Sat by Pulse Oximetry O2 Sat by Pulse 99 Oximetry [ Anterior Bilateral Throughout] - General Appearance General appearance: chronically ill, fatigue, frail EENT: ATNC Neck: no JVD Respiratory: Present: Clear to Ascultation Cardiology: regular Gastrointestinal: normal Integumentary: no rash, warm and dry Musculoskeletal: deferred - Lab 06/24/22 04:39 06/24/22 04:39 Most recent lab results Calcium 9.8 mg/dL (8.4-10.2) 06/24/22 04:39 - Allied health notes Allied health notes reviewed: nursing Medications & Allergies - Medications Allergies/Adverse Reactions: Allergies No Known Allergies Allergy (Verified 06/24/22 15:05) Home Medications: Home Medications Medication Instructions Recorded Confirmed Last Taken Type Aspirin EC [Halfprin EC] 81 mg PO QDAY 06/24/22 06/24/22 Unknown History Latanoprost 0.005% [Xalatan 0.005%] 1 drop OP QPM 06/24/22 06/24/22 Unknown History Losartan [Cozaar] 100 mg PO QDAY 06/24/22 06/24/22 Unknown History Metoprolol Xl [Metoprolol 100 mg PO QDAY 06/24/22 06/24/22 Unknown History SUCCINATE ER TAB] NIFEdipine [Nifedipine ER] 90 mg PO BID 06/24/22 06/24/22 Unknown History Active Medications: Generic Name Dose Route Start Last Admin Trade Name Freq PRN Reason Stop Dose Admin Acetaminophen 650 mg 06/22/22 17:53 Acetaminophen 325 Mg Tab PO Q4H PRN Pain MILD(1-3)/Fever >100.5/CHAN Albuterol 2.5 mg 06/22/22 17:53 Albuterol 2.5 Mg/3 Ml Nebu IH Q4HRT PRN Shortness Of Breath Hydralazine HCl 10 mg 06/23/22 02:16 06/23/22 16:09 Hydralazine 20 Mg/1 Ml Inj IV 10 mg Q4HR PRN Administration Hypertension Hydromorphone HCl 0.5 mg 06/22/22 17:53 Hydromorphone 0.5 Mg/0.5 Ml Inj IV Q23H PRN Pain , Severe (7-10) Sodium Chloride 100 mls @ 999 mls/hr 06/24/22 10:00 Nacl 0.9% IV WALTER PRN Hypotension Ondansetron HCl 4 mg 06/22/22 17:53 Ondansetron 4 Mg/2 Ml Inj IV Q8H PRN Nausea And Vomiting Oxycodone/Acetaminophen 1 tab 06/22/22 17:53 Oxycodone /Acetaminophen 5-325mg Tab PO Q16H PRN Pain, Moderate (4-6) Sodium Chloride 10 ml 06/22/22 22:00 06/24/22 09:41 Sodium Chloride 0.9% 10 Ml Flush Syringe IV 10 ml BID ANGELICA Administration Sodium Chloride 10 ml 06/22/22 17:53 Sodium Chloride 0.9% 10 Ml Flush Syringe IV PRN PRN LINE FLUSH
[2022-06-25 05:04] LABS: Mean Corpuscular HGB Conc 30 % (30-34); Mean Corpuscular Volume 84 fl (79-97); Platelet Count 236 K/mm3 (140-440); Red Blood Count 4.64 M/mm3 (3.65-5.03); Red Cell Distribution Width 19.6 % (13.2-15.2)
[2022-06-25 05:06] LABS: Hematocrit 38.8 % (30.3-42.9); Hemoglobin 11.7 gm/dl (10.1-14.3)
[2022-06-25 05:58] LABS: Hypochromasia 1+; Total Cells Counted 100
[2022-06-25 05:59] LABS: Toxic Granulation Rare
[2022-06-25 06:00] LABS: Platelet Estimate Consistent w Auto
[2022-06-25] MEDS ORDERED: LORazepam 2 MG/ML VIAL IV NR (08:24)
--- NOTE | 2022-06-25 09:55 | Magnetic Resonance Report ---
MR brain wo con INDICATION / CLINICAL INFORMATION: 82 years Female; ams, WEAKNESS LT SIDE. TECHNIQUE: Multiplanar, multisequence MR images of the brain were obtained. COMPARISON: None available. FINDINGS: BRAIN / INTRACRANIAL CONTENTS: The motion degrades the image quality at. However, there is extensive cerebral white matter disease most notably involving periventricular regions and most consistent with microvascular angiopathy at. However, the diffusion imaging reveals no clear evidence of acute infar ction at. There is mild to moderate cerebral atrophy with associated prominence of the ventricular system. No e xtra-axial fluid collections or significant mass effect is identified. CRANIOCERVICAL JUNCTION: No significant abnormality. VASCULAR FLOW-VOIDS: No significant abnormality. ORBITS: There appears be a defect involving left orbital floor with focal herniation of the orbital f at extending inferiorly approximately 4-5 mm. Is also mild abnormal contour to the left inferior rect us muscle without significant displacement. SINUSES / MASTOIDS: No significant abnormality in the visualized paranasal sinuses or mastoid air moira ls. ADDITIONAL FINDINGS: None. IMPRESSION: 1. The study is limited by motion. However, there is extensive microvascular angiopathy as described without evidence of recent infarction. 2. There is a defect involving visualized left orbital floor with focal herniation of orbital fat as detailed above. Signer Name: Joseph Porter MD Signed: 06/25/2022 9:51 AM Workstation Name: [id number]
--- NOTE | 2022-06-25 14:30 | Progress Note ---
Assessment and Plan - Patient Problems (1) Hyperkalemia Current Visit: Yes Status: Acute Plan to address problem: we will correct with hemodialysis. Likely a consequence of noncompliance with her dialysis treatments. (2) Accelerated hypertension Current Visit: Yes Status: Acute Plan to address problem: likely as a consequence of noncompliance with hemodialysis treatments. Will try to maximally optimize ultrafiltration during dialysis treatments. Will monitor closely on current regimen. (3) Metabolic encephalopathy Current Visit: Yes Status: Chronic Plan to address problem: there may be an element of worsening altered mentation secondary to poor comp liance with dialysis. She does however have a documented history of dementia and I did confirm this with her home dialysis clinic. (4) End stage renal disease Current Visit: Yes Status: Chronic Plan to address problem: we will continue on inpatient Wednesday hemodialysis schedule and will assess daily for extra needs of dialysis and/or sequential ultrafiltration treatment. She has required extra HD treatments secondary to persistent hyperkalemia. We will assess daily. Subjective Date of service: 06/25/22 Interval history: no acute changes. Tolerated hemodialysis well without any issues. Plan for next hemodialysis treatment tomorrow. Serum potassium levels are stable at this time. Objective - Vital Signs Vital signs: Vital Signs - 12hr 06/25/22 06/25/22 03:03 07:40 Temperature 97.5 F L Pulse Rate 83 82 Respiratory 16 Rate Blood Pressure 184/78 O2 Sat by Pulse 91 Oximetry - General Appearance General appearance: appears stated age, chronically ill, fatigue, frail EENT: ATNC Neck: no JVD, no thyromegaly Respiratory: Present: Clear to Ascultation Cardiology: regular Gastrointestinal: normal Integumentary: warm and dry Neurologic: no focal deficit Musculoskeletal: deferred - Lab 06/25/22 03:57 06/25/22 03:57 Most recent lab results Calcium 10.0 mg/dL (8.4-10.2) 06/25/22 03:57 - Allied health notes Allied health notes reviewed: nursing Medications & Allergies - Medications Allergies/Adverse Reactions: Allergies No Known Allergies Allergy (Verified 06/24/22 15:05) Home Medications: Home Medications Medication Instructions Recorded Confirmed Last Taken Type Aspirin EC [Halfprin EC] 81 mg PO QDAY 30 Days #30 06/25/22 Unknown Rx Latanoprost 0.005% 1 drop OP QPM 30 Days #1 bottle 06/25/22 Unknown Rx Losartan [Cozaar] 100 mg PO QDAY 30 Days #30 06/25/22 Unknown Rx Metoprolol Xl [Metoprolol 100 mg PO QDAY 30 Days #30 06/25/22 Unknown Rx SUCCINATE ER TAB] NIFEdipine [Nifedipine ER] 90 mg PO BID 30 Days #60 06/25/22 Unknown Rx Active Medications: Generic Name Dose Route Start Last Admin Trade Name Freq PRN Reason Stop Dose Admin Acetaminophen 650 mg 06/22/22 17:53 Acetaminophen 325 Mg Tab PO Q4H PRN Pain MILD(1-3)/Fever >100.5/CHAN Albuterol 2.5 mg 06/22/22 17:53 Albuterol 2.5 Mg/3 Ml Nebu IH Q4HRT PRN Shortness Of Breath Hydralazine HCl 10 mg 06/23/22 02:16 06/23/22 16:09 Hydralazine 20 Mg/1 Ml Inj IV 10 mg Q4HR PRN Administration Hypertension Hydromorphone HCl 0.5 mg 06/22/22 17:53 Hydromorphone 0.5 Mg/0.5 Ml Inj IV Q23H PRN Pain , Severe (7-10) Sodium Chloride 100 mls @ 999 mls/hr 06/24/22 10:00 Nacl 0.9% IV WALTER PRN Hypotension Ondansetron HCl 4 mg 06/22/22 17:53 Ondansetron 4 Mg/2 Ml Inj IV Q8H PRN Nausea And Vomiting Oxycodone/Acetaminophen 1 tab 06/22/22 17:53 Oxycodone /Acetaminophen 5-325mg Tab PO Q16H PRN Pain, Moderate (4-6) Sodium Chloride 10 ml 06/22/22 22:00 06/25/22 13:15 Sodium Chloride 0.9% 10 Ml Flush Syringe IV 10 ml BID ANGELICA Administration Sodium Chloride 10 ml 06/22/22 17:53 Sodium Chloride 0.9% 10 Ml Flush Syringe IV PRN PRN LINE FLUSH
[2022-06-26 04:40] LABS: Hematocrit 37.9 % (30.3-42.9); Hemoglobin 11.7 gm/dl (10.1-14.3); Mean Corpuscular HGB Conc 31 % (30-34); Mean Corpuscular Volume 83 fl (79-97); Platelet Count 239 K/mm3 (140-440); Red Cell Distribution Width 19.6 % (13.2-15.2)
[2022-06-26 05:02] LABS: Calcium 9.8 mg/dL (8.4-10.2)
[2022-06-26 05:29] LABS: Total Cells Counted 100
[2022-06-26 05:30] LABS: Hypochromasia 1+; Platelet Estimate Consistent w Auto
--- NOTE | 2022-06-26 10:05 | Progress Note ---
Assessment and Plan - Patient Problems (1) Hyperkalemia Current Visit: Yes Status: Acute Plan to address problem: we will correct with hemodialysis. Likely a consequence of noncompliance with her dialysis treatments. (2) Accelerated hypertension Current Visit: Yes Status: Acute Plan to address problem: likely as a consequence of noncompliance with hemodialysis treatments. Will try to maximally optimize ultrafiltration during dialysis treatments. Will monitor closely on current regimen. (3) Metabolic encephalopathy Current Visit: Yes Status: Chronic Plan to address problem: there may be an element of worsening altered mentation secondary to poor comp liance with dialysis. She does however have a documented history of dementia and I did confirm this with her home dialysis clinic. (4) End stage renal disease Current Visit: Yes Status: Chronic Plan to address problem: we will continue on inpatient Wednesday hemodialysis schedule and will assess daily for extra needs of dialysis and/or sequential ultrafiltration treatment. She has required extra HD treatments secondary to persistent hyperkalemia. We will assess daily. Subjective Date of service: 06/26/22 Interval history: No acute issues at this time. Plan for HD today. MRI brain reviewed and no acute changes/issues noted. Objective - Vital Signs Vital signs: Vital Signs - 12hr 06/25/22 06/25/22 06/26/22 22:40 23:17 09:09 Temperature 98.2 F Pulse Rate 81 Respiratory 18 Rate Blood Pressure 168/85 O2 Sat by Pulse 97 93 96 Oximetry - General Appearance General appearance: appears stated age, chronically ill, fatigue, frail EENT: ATNC Neck: no JVD Respiratory: Present: Clear to Ascultation Cardiology: regular Gastrointestinal: normal Integumentary: no rash Musculoskeletal: deferred - Lab 06/26/22 03:57 06/26/22 03:57 Most recent lab results Calcium 9.8 mg/dL (8.4-10.2) 06/26/22 03:57 - Allied health notes Allied health notes reviewed: nursing Medications & Allergies - Medications Allergies/Adverse Reactions: Allergies No Known Allergies Allergy (Verified 06/24/22 15:05) Home Medications: Home Medications Medication Instructions Recorded Confirmed Last Taken Type Aspirin EC [Halfprin EC] 81 mg PO QDAY 30 Days #30 06/25/22 Unknown Rx Latanoprost 0.005% 1 drop OP QPM 30 Days #1 bottle 06/25/22 Unknown Rx Losartan [Cozaar] 100 mg PO QDAY 30 Days #30 06/25/22 Unknown Rx Metoprolol Xl [Metoprolol 100 mg PO QDAY 30 Days #30 06/25/22 Unknown Rx SUCCINATE ER TAB] NIFEdipine [Nifedipine ER] 90 mg PO BID 30 Days #60 06/25/22 Unknown Rx Active Medications: Generic Name Dose Route Start Last Admin Trade Name Freq PRN Reason Stop Dose Admin Acetaminophen 650 mg 06/22/22 17:53 Acetaminophen 325 Mg Tab PO Q4H PRN Pain MILD(1-3)/Fever >100.5/CHAN Albuterol 2.5 mg 06/22/22 17:53 Albuterol 2.5 Mg/3 Ml Nebu IH Q4HRT PRN Shortness Of Breath Hydralazine HCl 10 mg 06/23/22 02:16 06/23/22 16:09 Hydralazine 20 Mg/1 Ml Inj IV 10 mg Q4HR PRN Administration Hypertension Hydromorphone HCl 0.5 mg 06/22/22 17:53 Hydromorphone 0.5 Mg/0.5 Ml Inj IV Q23H PRN Pain , Severe (7-10) Sodium Chloride 100 mls @ 999 mls/hr 06/24/22 10:00 Nacl 0.9% IV WALTER PRN Hypotension Ondansetron HCl 4 mg 06/22/22 17:53 Ondansetron 4 Mg/2 Ml Inj IV Q8H PRN Nausea And Vomiting Oxycodone/Acetaminophen 1 tab 06/22/22 17:53 Oxycodone /Acetaminophen 5-325mg Tab PO Q16H PRN Pain, Moderate (4-6) Sodium Chloride 10 ml 06/22/22 22:00 06/26/22 09:38 Sodium Chloride 0.9% 10 Ml Flush Syringe IV 10 ml BID ANGELICA Administration Sodium Chloride 10 ml 06/22/22 17:53 Sodium Chloride 0.9% 10 Ml Flush Syringe IV PRN PRN LINE FLUSH
--- NOTE | 2022-06-26 10:44 | Discharge Summary ---
Providers - Providers Date of Admission: 06/22/22 17:54 Date of discharge: 06/26/22 Attending physician: TESSIE BERGER 06/23/22 09:24 Consult to Physician [CONS] Routine Comment: Consulting Provider: DUKE HAINES Physician Instructions: Reason For Exam: Renal failure Primary care physician: [facility] Hospitalization Reason for admission: missed Hd Condition: Stable Hospital course: 82 YO Female with Vascular Dementia, Cerebral Atherosclerosis, Debility, ESRD on HD presents to ED for evaluation of confusion and lethargic with diminished cognition at the time of evaluation and is unable to provide history. Patient described by EMS staff, ED staff, as well as the patient's son was made availa ble by telephone for interview. As per son the patient has experienced increased confusion and weakness over the past several weeks and has been unable to undergo dialysis. The patient was seen and evaluated emergency department. All lab and imaging studies reviewed. Patient found to have end-stage renal disease, hyperkalemia, fluid overload, metabolic encephalopathy, hypertensive urgency Acute metabolic encephalopathy ESRD Hyperkalemia Hypertensive urgency Hospital course: 06/23/2022. On admission, patient was noted to have a potassium of 8.6. The patient underwent stat hemodialysis yesterday with only slight improvement in the potassium to 7.3 today. Patient is to undergo hemodialysis again today. Patient remains confused. We will check ammonia levels. Check MRI brain 06/24/2022. Ammonia level within normal limits. Await MRI brain. Consider neurology consultation. Patient undergoing hemodialysis currently. We will assess mental status after hemodialysis treatment. I suspect etiology is secondary to metabolic encephalopathy. Hypokalemia should also resolve with hemodialysis. Continue antihypertensive medications 06/26/2022. MRI revealed extensive microvascular angiopathy but no evidence of recent infarction. I suspect patient has underlying vascular dementia. Patient will be able to discharge after hemodialysis today Disposition: 30 STILL A PATIENT Final Discharge Diagnosis (Prints w/discharge instructions): Acute metabolic encephalopathy. ESRD. Hyperkalemia. Hypertensive urgency. Vascular dementia Core Measure Documentation - Palliative Care Palliative Care/ Comfort Measures: Not Applicable - Core Measures Any of the following diagnoses?: none Exam - Constitutional Vitals: Temp Pulse Resp BP Pulse Ox 98.2 F 81 18 168/85 96 06/25/22 23:17 06/25/22 23:17 06/25/22 23:17 06/25/22 23:17 06/26/22 09:09 General appearance: Present: no acute distress, well-nourished - EENT Eyes: Present: PERRL ENT: hearing intact, clear oral mucosa - Neck Neck: Present: supple, normal ROM - Respiratory Respiratory effort: normal Respiratory: bilateral: CTA - Cardiovascular Heart Sounds: Present: S1 & S2. Absent: rub, click - Extremities Extremities: pulses symmetrical, No edema Peripheral Pulses: within normal limits - Abdominal General gastrointestinal: Present: soft, non-tender, non-distended, normal bowel sounds Female genitourinary: Present: normal - Integumentary Integumentary: Present: clear, warm, dry - Musculoskeletal Musculoskeletal: gait normal, strength equal bilaterally - Psychiatric Psychiatric: appropriate mood/affect, intact judgment & insight - Neurologic Neurologic: CNII-XII intact, moves all extremities Plan Activity: advance as tolerated Weight Bearing Status: Weight Bear as Tolerated Diet: renal Follow up with: PRIMARY CARE, [Referring] - 7 Days Prescriptions: Losartan [Cozaar] 100 mg PO QDAY 30 Days #30 Aspirin EC [Halfprin EC] 81 mg PO QDAY 30 Days #30 Latanoprost 0.005% 1 drop OP QPM 30 Days #1 bottle Metoprolol Xl [Metoprolol SUCCINATE ER TAB] 100 mg PO QDAY 30 Days #30 NIFEdipine [Nifedipine ER] 90 mg PO BID 30 Days #60
[2022-06-26] MEDS ORDERED: SODIUM CHLORIDE 0.9% 100 ML IV PRN (13:00)
--- NOTE | 2022-06-26 13:29 | Progress Note ---
Assessment and Plan Assessment and Plan - Patient Problems (1) Metabolic encephalopathy Current Visit: Yes Status: Acute Plan to address problem: Confused persists (2) End stage renal disease Current Visit: Yes Status: Acute Plan to address problem: Urgent dialysis as per renal team, strict I's/O, monitor fluid balance, avoid ne phrotoxic agents. (3) Hyperkalemia Current Visit: No Status: Acute Plan to address problem: Kayexalate, calcium gluconate, supportive care, stat dialysis, repeat BMP, no EKG changes at this time. (4) Accelerated hypertension Current Visit: Yes Status: Acute Plan to address problem: Monitor blood pressure every shift, continue medical management, IV hydralazine every 6 hours as needed for systolic blood pressure greater than or equal to 155 mmHg. (5) DVT prophylaxis Current Visit: Yes Status: Acute Plan to address problem: SCD to bilateral lower extremities while in bed (6) Advance care planning Current Visit: Yes Status: Acute Plan to address problem: Disease education data, care plan discussed, diagnoses discussed, prognosis discussed, patient is full code. Patient family knowledges understanding agree with care plan, +30 minutes. (7) Preventative health care Current Visit: Yes Status: Acute Plan to address problem: Patient family counseled regarding prognosis, home safety, outpatient follow-up with all age and risk factor appropriate screening tests as per primary care physician. +30 minutes. Subjective Date of service: 06/25/22 Principal diagnosis: Acute metabolic encephalopathy Interval history: 82 YO Female with Vascular Dementia, Cerebral Atherosclerosis, Debility, ESRD on HD presents to ED for evaluation of confusion and lethargic with diminished cognition at the time of evaluation and is unable to provide history. Patient described by EMS staff, ED staff, as well as the patient's son was made available by telephone for interview. As per son the patient has experienced increased confusion and weakness over the past several weeks and has been unable to undergo dialysis. The patient was seen and evaluated emergency department. All lab and imaging studies reviewed. Patient found to have end-stage renal disease, hyperkalemia, fluid overload, metabolic encephalopathy, accelerated hypertension. Acute metabolic encephalopathy ESRD Hyperkalemia Accelerated hypertension Hospital course: 06/23/2022. On admission, patient was noted to have a potassium of 8.6. The patient underwent stat hemodialysis yesterday with only slight improvement in the potassium to 7.3 today. Patient is to undergo hemodialysis again today. Patient remains confused. We will check ammonia levels. Check MRI brain 06/24/2022. Ammonia level within normal limits. Await MRI brain. Consider neurology consultation. Patient undergoing hemodialysis currently. We will assess mental status after hemodialysis treatment. I suspect etiology is secondary to metabolic encephalopathy. Hypokalemia should also resolve with hemodialysis. Continue antihypertensive medications. 06/25/22 Still confused Objective - Constitutional Vitals: Vital Signs - 12hr 06/26/22 09:09 O2 Sat by Pulse 96 Oximetry General appearance: Present: no acute distress, well-nourished - EENT Eyes: PERRL, EOM intact ENT: hearing intact, clear oral mucosa Ears: bilateral: normal - Neck Neck: supple, normal ROM - Respiratory Respiratory effort: normal Respiratory: bilateral: CTA - Breasts Breasts: normal - Cardiovascular Heart rate: 78 Rhythm: regular Heart Sounds: Present: S1 & S2. Absent: gallop, rub Extremities: pulses intact, No edema, normal color, Full ROM - Gastrointestinal General gastrointestinal: Present: soft, non-tender, non-distended, normal bowel sounds - Genitourinary Female genitourinary: normal - Integumentary Integumentary: clear, warm, dry - Musculoskeletal Musculoskeletal: 1, strength equal bilaterally - Neurologic Neurologic: moves all extremities - Psychiatric Psychiatric: memory intact, appropriate mood/affect, intact judgment & insight - Labs CBC & Chem 7: 06/26/22 03:57 06/26/22 03:57 Labs: Abnormal lab results 06/26/22 06/26/22 Range/Units 03:57 03:57 MCH 26 L (28-32) pg RDW 19.6 H (13.2-15.2) % Monocytes % (Manual) 10.0 H (0.0-7.3) % Basophils % (Manual) 3.0 H (0.0-1.8) % Basophils # (Manual) 0.2 H (0.0-0.1) K/mm3 Chloride 93.9 L (98-107) mmol/L BUN 48 H (7-17) mg/dL Creatinine 6.7 H (0.6-1.2) mg/dL HEART Score - HEART Score Troponin: Troponin T 0.057 ng/mL (0.00-0.029) H 06/22/22 13:05
[2022-06-27] MEDS: hydrALAZINE 20 MG/1 ML INJ IV PRN (05:29)
[2022-06-27 06:50] LABS: Hemoglobin 11.5 gm/dl (10.1-14.3); Mean Corpuscular HGB Conc 31 % (30-34); Mean Corpuscular Volume 82 fl (79-97); Platelet Count 221 K/mm3 (140-440); Red Blood Count 4.52 M/mm3 (3.65-5.03); Red Cell Distribution Width 19.6 % (13.2-15.2)
[2022-06-27 07:09] LABS: Calcium 9.6 mg/dL (8.4-10.2)
[2022-06-27 08:10] LABS: Basophils % (Manual) 0 % (0.0-1.8); Hypochromasia 1+; Total Cells Counted 100
[2022-06-27 08:11] LABS: Platelet Estimate Consistent w Auto
[2022-06-27 08:38] VITALS: BP 143/79
--- NOTE | 2022-06-27 09:58 | Progress Note ---
Assessment and Plan - Patient Problems (1) End stage renal disease Current Visit: Yes Status: Chronic Plan to address problem: continue on inpatient Wednesday hemodialysis schedule and will assess daily for extra needs of dialysis and/or sequential ultrafiltration treatment. We will assess daily. (2) Hyperkalemia Current Visit: Yes Status: Acute Plan to address problem: corrected with hemodialysis. (3) Metabolic encephalopathy Current Visit: Yes Status: Chronic Plan to address problem: there may be an element of worsening altered mentation secondary to poor compliance with dialysis. She does however have a documented history of de mentia, which was confirmed with her home dialysis clinic. (4) Accelerated hypertension Current Visit: Yes Status: Acute Plan to address problem: likely as a consequence of noncompliance with hemodialysis treatments. Will continued to optimize ultrafiltration during dialysis treatments. Will monitor closely on current regimen. Subjective Date of service: 06/27/22 Principal diagnosis: Acute metabolic encephalopathy Interval history: Pt is lethargic, weak, in no acute respiratory distress Objective - Vital Signs Vital signs: Vital Signs - 12hr 06/26/22 06/27/22 06/27/22 22:40 00:10 05:14 Temperature 97.9 F 98.1 F Pulse Rate 92 H 92 H Respiratory 18 17 Rate Blood Pressure 167/87 Blood Pressure 168/82 [Left] O2 Sat by Pulse 98 97 98 Oximetry 06/27/22 06/27/22 05:29 08:17 Temperature 98.4 F Pulse Rate 92 H 94 H Respiratory 18 Rate Blood Pressure 169/92 143/79 Blood Pressure [Left] O2 Sat by Pulse 90 Oximetry - General Appearance General appearance: well-developed, well-nourished, appears stated age EENT: ATNC, PERRL, mucous membranes moist Neck: no JVD Respiratory: Present: Clear to Ascultation Cardiology: regular, S1S2 Gastrointestinal: normoactive bowel sounds Integumentary: no rash - Lab 06/27/22 06:02 06/27/22 06:02 Most recent lab results Calcium 9.6 mg/dL (8.4-10.2) 06/27/22 06:02 Medications & Allergies - Medications Allergies/Adverse Reactions: Allergies No Known Allergies Allergy (Verified 06/24/22 15:05) Home Medications: Home Medications Medication Instructions Recorded Confirmed Last Taken Type Aspirin EC [Halfprin EC] 81 mg PO QDAY 30 Days #30 06/25/22 Unknown Rx Latanoprost 0.005% 1 drop OP QPM 30 Days #1 bottle 06/25/22 Unknown Rx Losartan [Cozaar] 100 mg PO QDAY 30 Days #30 06/25/22 Unknown Rx Metoprolol Xl [Metoprolol 100 mg PO QDAY 30 Days #30 06/25/22 Unknown Rx SUCCINATE ER TAB] NIFEdipine [Nifedipine ER] 90 mg PO BID 30 Days #60 06/25/22 Unknown Rx Active Medications: Generic Name Dose Route Start Last Admin Trade Name Freq PRN Reason Stop Dose Admin Acetaminophen 650 mg 06/22/22 17:53 Acetaminophen 325 Mg Tab PO Q4H PRN Pain MILD(1-3)/Fever >100.5/CHAN Albuterol 2.5 mg 06/22/22 17:53 Albuterol 2.5 Mg/3 Ml Nebu IH Q4HRT PRN Shortness Of Breath Hydralazine HCl 10 mg 06/23/22 02:16 06/27/22 05:29 Hydralazine 20 Mg/1 Ml Inj IV 10 mg Q4HR PRN Administration Hypertension Hydromorphone HCl 0.5 mg 06/22/22 17:53 06/26/22 12:55 Hydromorphone 0.5 Mg/0.5 Ml Inj IV 0.5 mg Q23H PRN Administration Pain , Severe (7-10) Sodium Chloride 100 mls @ 999 mls/hr 06/26/22 13:00 Nacl 0.9% IV WALTER PRN Hypotension Ondansetron HCl 4 mg 06/22/22 17:53 Ondansetron 4 Mg/2 Ml Inj IV Q8H PRN Nausea And Vomiting Oxycodone/Acetaminophen 1 tab 06/22/22 17:53 Oxycodone /Acetaminophen 5-325mg Tab PO Q16H PRN Pain, Moderate (4-6) Sodium Chloride 10 ml 06/22/22 22:00 06/27/22 09:49 Sodium Chloride 0.9% 10 Ml Flush Syringe IV 10 ml BID ANGELICA Administration Sodium Chloride 10 ml 06/22/22 17:53 Sodium Chloride 0.9% 10 Ml Flush Syringe IV PRN PRN LINE FLUSH
== END 2022-06-27 11:07 | disposition home health service (06) | DRG 640 ==
LOC: ED 11:28 → 4A 17:54
PROVIDERS: ADMIT Internal Medicine; ATTEND Hospitalist
PROC: 5A1D70Z Performance of Urinary Filtration, Intermittent, Less than 6 Hours Per Day (ICD-10-PCS; principal; 2022-06-22)
PROC: 5A1D70Z Performance of Urinary Filtration, Intermittent, Less than 6 Hours Per Day (ICD-10-PCS; 2022-06-23)
PROC: 5A1D70Z Performance of Urinary Filtration, Intermittent, Less than 6 Hours Per Day (ICD-10-PCS; 2022-06-24)
PROC: 5A1D70Z Performance of Urinary Filtration, Intermittent, Less than 6 Hours Per Day (ICD-10-PCS; 2022-06-26)
DX: E87.5 Hyperkalemia (principal); G93.41 Metabolic encephalopathy; N18.6 End stage renal disease; I12.0 Hypertensive chronic kidney disease with stage 5 chronic kidney disease or end stage renal disease; F01.50 Vascular dementia, unspecified severity, without behavioral disturbance, psychotic disturbance, mood disturbance, and anxiety; I67.2 Cerebral atherosclerosis; R53.81 Other malaise; I16.0 Hypertensive urgency; Z83.3 Family history of diabetes mellitus; Z82.49 Family history of ischemic heart disease and other diseases of the circulatory system; Z99.2 Dependence on renal dialysis
CPT/HCPCS: 36415; 70450; 70551; 71045; 80048; 80053; 80061; 80074; 80320; 82140; 82550; 82962; 84132; 84443; 84484; 85007; 85025; 85610; 85730; 86850; 86900; 86901; 87040; 93005; 94644; 94760; G0378; J3490; Q9967; G0480; J0360; J0610; J1170; J1815; J2060